=== PATIENT | male | born 1995 ===

== ENCOUNTER 2024-09-27 21:34 | Emergency (ER) | payer SELFPAY ==
[2024-09-27] MEDS: Diphtheria,Pertussis(Acell),Tetanus Vaccine 0.5 ML Syringe IM ONE (21:53)
[2024-09-27] MEDS ORDERED: fentaNYL 250 MCG/5 ML SDV ONE (23:55)
[2024-09-27] MEDS ORDERED: Ondansetron 4 MG/2 ML SDV ONE (23:57)
[2024-09-27] MEDS ORDERED: Dexamethasone 4 MG/ML SDV ONE (23:57)
[2024-09-27] MEDS ORDERED: Glycopyrrolate 0.2 MG/ML 5 ML MDV ONE (23:57)
[2024-09-27] MEDS ORDERED: Propofol 200 MG/20 ML SDV ONE (23:57)
[2024-09-27] MEDS ORDERED: Succinylcholine 200 MG/10 ML MDV ONE (23:57)
== END 2024-09-28 03:10 | disposition home or self-care (01) ==
LOC: JP.ED 21:34
DX: S80.252A Superficial foreign body, left knee, initial encounter (principal); Z23 Encounter for immunization; W29.4XXA Contact with nail gun, initial encounter
CPT/HCPCS: 73560; 90471; 90715; 96374; 99283; J0330; J0665; J0690; J1100; J1596; J2405; J2704; J2710; J3010; J3490